=== PATIENT | male | born 1950 ===

== ENCOUNTER 2019-12-17 11:42 | Emergency (ER) | payer OTHER, MEDICARE ==
[2019-12-17] MEDS ORDERED: Sodium Chloride 0.9% 10 ML Syringe FLUSH PRN (11:52)
--- NOTE | 2019-12-17 11:52 | EDM.PDOC ---
ED HPI GENERAL MEDICAL PROBLEM - General Stated Complaint: CANT BREATH, EAT, SLEEP Time Seen by Provider: 12/17/19 11:52 Source of Information: Reports: Patient, RN, RN Notes Reviewed History Limitations: Reports: No Limitations - History of Present Illness INITIAL COMMENTS - FREE TEXT/NARRATIVE: Patient presents to ER with complaint of shortness of breath, feeling of weakness, decreased appetite, and states he has not slept in 4 days. Patient is a , and thought he was coming to the [facility]. Patient states that he has been diagnosed with COPD. States he has oxygen at home that he uses only when needed, which has been much more often lately. Patient denies any fever chills, nausea, vomiting, diarrhea. Patient says he has had increased weakness and has had some falls at home, denies falling hard or hitting his head, states he generally catches himself. Patient states he does not doctor often. Denies taking any medications on a regular basis. Patient denies being diabetic, or having any heart problems. Onset: Gradual Generalized Pain Score (Numeric/FACES): 5 - Related Data Allergies Allergy/AdvReac Type Severity Reaction Status Date / Time Penicillins Allergy Rash Verified 12/17/19 11:59 Home Meds: Home Meds . [No Known Home Meds] 12/17/19 [History] ED ROS GENERAL - Review of Systems Review Of Systems: Comprehensive ROS is negative, except as noted in HPI. ED EXAM, GENERAL - Physical Exam Exam: See Below Exam Limited By: Respiratory Distress General Appearance: Alert, Moderate Distress, Thin, Cachetic Eye Exam: Bilateral Eye: EOMI, Normal Inspection Ears: Normal External Exam, Hearing Loss Nose: Normal Inspection Throat/Mouth: Normal Inspection, Normal Voice, No Airway Compromise Head: Atraumatic, Normocephalic Neck: Normal Inspection, Supple, Non-Tender, Full Range of Motion Respiratory/Chest: Respiratory Distress, Decreased Breath Sounds (very little AE heard), Crackles (throughout), Accessory Muscle Use Cardiovascular: Normal Peripheral Pulses, Regular Rate, Rhythm, No Gallop, No JVD, No Murmur, No Rub, Tachycardia, Other (pedal edema) Peripheral Pulses: 1+: Dorsalis Pedis (L), Dorsalis Pedis (R), 2+: Radial (L), Radial (R) GI/Abdominal: Normal Bowel Sounds, Soft, Non-Tender, No Organomegaly, No Distention, No Abnormal Bruit, No Mass, Pelvis Stable (Male) Exam: Deferred Rectal (Males) Exam: Deferred Back Exam: Decreased Range of Motion Extremities: Normal Range of Motion, Pedal Edema (+2-3 pitting to feet) Neurological: Alert, Oriented, CN II-XII Intact, Normal Cognition Psychiatric: Normal Affect, Normal Mood Skin Exam: Warm, Dry, Intact, Normal Color, No Rash Lymphatic: No Adenopathy Course - Vital Signs Last Recorded V/S: Last Vital Signs Temp 97.7 F 12/17/19 11:55 Pulse 121 H 12/17/19 11:55 Resp 24 H 12/17/19 11:55 BP 185/105 H 12/17/19 11:55 Pulse Ox 75 L 12/17/19 11:55 - Orders/Labs/Meds Orders: Active Orders 24 hr Category Date Time Status EKG Documentation Completion [RC] STAT Care 12/17/19 11:53 Active Peripheral IV Care [RC] . DIRECTED Care 12/17/19 11:53 Active REFLEX LACTIC ACID YES OR NO [CHEM] Routine Lab 12/17/19 12:47 Received UA RFX YAAKOV AND CULT IF INDIC [URIN] Stat Lab 12/17/19 13:31 Ordered Heparin Sodium/0.45% NaCl [Heparin 25,000 Units in 1/2 Med 12/17/19 13:00 Active NS 500 ML] 25,000 units in 500 ml IV TITRATE Sodium Chloride 0.9% [Saline Flush] Med 12/17/19 11:52 Active 10 ml FLUSH ASDIRECTED PRN Peripheral IV Insertion Adult [OM.PC] Stat Oth 12/17/19 11:52 Ordered Medication Orders Heparin Sodium/Sodium Chloride (Heparin 25,000 Units In 1/2 Ns 500 Ml) 25,000 units in 500 mls @ 10.538 mls/hr IV TITRATE LUZMA; Protocol Last Admin: 12/17/19 13:06 Dose: 12 units/kg/hr, 10.538 mls/hr Documented by: KAITLYN Cosigned by: MARCIA Sodium Chloride (Saline Flush) 10 ml FLUSH ASDIRECTED PRN PRN Reason: Keep Vein Open Last Admin: 12/17/19 12:00 Dose: 10 ml Documented by: KAITLYN Labs: Laboratory Tests 12/17/19 12/17/19 12/17/19 Range/Units 11:55 11:55 11:55 WBC 12.4 H (5.0-10.0) 10^3/uL RBC 5.68 (4.6-6.2) 10^6/uL Hgb 17.6 (14.0-18.0) g/dL Hct 51.4 (40.0-54.0) % MCV 90.5 (80-100) fL MCH 31.0 (27.0-34.0) pg MCHC 34.2 (33.0-35.0) g/dL Plt Count 281 (150-450) 10^3/uL Neut % (Auto) 87.9 H (42.2-75.2) % Lymph % (Auto) 6.2 L (20.5-50.1) % Benzie % (Auto) 5.5 (2-8) % Eos % (Auto) 0.1 L (1.0-3.0) % Baso % (Auto) 0.3 (0.0-1.0) % PT 11.0 (9.0-12.0) SEC INR 1.2 (0.9-1.2) D-Dimer, Quantitative 298 (0-400) ng/mL Sodium 136 (136-145) mmol/L Potassium 4.2 (3.5-5.1) mmol/L Chloride 95 L (98-107) mmol/L Carbon Dioxide 30 (21-32) mmol/L Anion Gap 15.2 H (7-13) mEq/L BUN 23 H (7-18) mg/dL Creatinine 1.07 (0.70-1.30) mg/dL Est Cr Clr Drug Dosing TNP Estimated GFR (MDRD) > 60 BUN/Creatinine Ratio 21.5 (No establ ref range) Glucose 120 H (74-99) mg/dL Lactic Acid (0.4-2.0) mmol/L Calcium 9.2 (8.5-10.1) mg/dL Total Bilirubin 0.6 (0.2-1.0) mg/dL AST 26 (15-37) U/L ALT 27 (16-63) U/L Alkaline Phosphatase 91 (46-116) U/L Troponin I 0.224 H* (0.000-0.056) ng/mL B-Natriuretic Peptide 2000 H (0-100) pg/ml Total Protein 8.1 (6.4-8.2) g/dL Albumin 3.8 (3.4-5.0) g/dL Globulin 4.3 Albumin/Globulin Ratio 0.9 COVID-19 (EMMANUEL) (NEGATIVE) 12/17/19 12/17/19 Range/Units 11:55 12:57 WBC (5.0-10.0) 10^3/uL RBC (4.6-6.2) 10^6/uL Hgb (14.0-18.0) g/dL Hct (40.0-54.0) % MCV (80-100) fL MCH (27.0-34.0) pg MCHC (33.0-35.0) g/dL Plt Count (150-450) 10^3/uL Neut % (Auto) (42.2-75.2) % Lymph % (Auto) (20.5-50.1) % Benzie % (Auto) (2-8) % Eos % (Auto) (1.0-3.0) % Baso % (Auto) (0.0-1.0) % PT (9.0-12.0) SEC INR (0.9-1.2) D-Dimer, Quantitative (0-400) ng/mL Sodium (136-145) mmol/L Potassium (3.5-5.1) mmol/L Chloride (98-107) mmol/L Carbon Dioxide (21-32) mmol/L Anion Gap (7-13) mEq/L BUN (7-18) mg/dL Creatinine (0.70-1.30) mg/dL Est Cr Clr Drug Dosing Estimated GFR (MDRD) BUN/Creatinine Ratio (No establ ref range) Glucose (74-99) mg/dL Lactic Acid 3.2 H* (0.4-2.0) mmol/L Calcium (8.5-10.1) mg/dL Total Bilirubin (0.2-1.0) mg/dL AST (15-37) U/L ALT (16-63) U/L Alkaline Phosphatase (46-116) U/L Troponin I (0.000-0.056) ng/mL B-Natriuretic Peptide (0-100) pg/ml Total Protein (6.4-8.2) g/dL Albumin (3.4-5.0) g/dL Globulin Albumin/Globulin Ratio COVID-19 (EMMANUEL) Negative (NEGATIVE) Meds: Medications Generic Name Dose Route Start Last Admin Trade Name Freq PRN Reason Stop Dose Admin Heparin Sodium/Sodium Chloride 25,000 units in 500 mls @ 10.538 mls/hr 12/17/19 13:00 12/17/19 13:06 Heparin 25,000 Units In 1/2 Ns 500 Ml IV 12 units/kg/hr TITRATE LUZMA 10.538 mls/hr Administration Protocol 12 UNITS/KG/HR Sodium Chloride 10 ml 12/17/19 11:52 12/17/19 12:00 Saline Flush FLUSH 10 ml ASDIRECTED PRN Administration Keep Vein Open Discontinued Medications Generic Name Dose Route Start Last Admin Trade Name Freq PRN Reason Stop Dose Admin Aspirin 324 mg 12/17/19 12:52 12/17/19 13:05 Aspirin PO 12/17/19 12:53 324 mg ONETIME ONE Administration Furosemide 80 mg 12/17/19 12:47 12/17/19 12:52 Lasix IVPUSH 12/17/19 12:48 80 mg NOW ONE Administration Heparin Sodium (Porcine) 4,000 units 12/17/19 12:53 12/17/19 13:06 Heparin Sodium IVPUSH 12/17/19 12:54 4,000 units .BOLUS ONE Administration - Radiology Interpretation Free Text/Narrative:: Chest xray: PROCEDURE INFORMATION: Exam: XR Chest, 1 View Exam date and time: 12/17/2019 12:35 PM Age: 69 years old Clinical indication: Other: SOB, sats 75% ra; Additional info: SOB, sats 75% ra TECHNIQUE: Imaging protocol: XR of the chest Views: 1 view. COMPARISON: No relevant prior studies available. FINDINGS: Lungs: There is mild vascular congestion. There are hazy multifocal right perihilar mid and lower lung opacities which should be correlated for pneumonitis. The left lung is grossly clear. There is bilateral apical pulmonary scarring. Pleural space: There is a trace right pleural effusion. Heart/Mediastinum: There is moderate cardiac enlargement. The pulmonary artery caliber is prominent. Bones/joints: There is no acute osseous abnormality. IMPRESSION: Although there is moderate cardiac enlargement and mild vascular congestion as well as mild pulmonary artery enlargement, there are more localizing asymmetric multifocal right perihilar mid to lower lung zone opacities concerning for pneumonitis. Thank you for allowing us to participate in the care of your patient. Dictated and Authenticated by: Roge Williamson MD 12/17/2019 1:04 PM Central Time ([place] & [place]) See rad report - Re-Assessments/Exams Free Text/Narrative Re-Assessment/Exam: 12/17/19 12:55 Discussed patient case with Dr. Davison at the [facility]. She states the patient should be transferred to , as they do not have a cytology laboratory manager. Patient case discussed with Dr. Baird who agreed to accept the patient for t ransfer to . Departure - Departure Time of Disposition: 13:59 Disposition: DC/Tfer to [facility] 02 Condition: Poor, Serious Clinical Impression: NSTEMI (non-ST elevated myocardial infarction) COPD (chronic obstructive pulmonary disease) Qualifiers: COPD type: COPD with acute exacerbation Qualified Code(s): J44.1 - Chronic obstructive pulmonary disease with (acute) exacerbation CHF (congestive heart failure) Qualifiers: Heart failure type: systolic Heart failure chronicity: acute Qualified Code(s): I50.21 - Acute systolic (congestive) heart failure - Discharge Information *PRESCRIPTION DRUG MONITORING PROGRAM REVIEWED*: No *COPY OF PRESCRIPTION DRUG MONITORING REPORT IN PATIENT LEI: No Forms: Interfacility Transfer EMTALA, ED Department Discharge Sepsis Event Note (ED) - Focused Exam Vital Signs: Vital Signs Temp Pulse Resp BP Pulse Ox 12/17/19 11:55 97.7 F 121 H 24 H 185/105 H 75 L - My Orders Last 24 Hours: My Active Orders 12/17/19 11:52 Sodium Chloride 0.9% [Saline Flush] 10 ml FLUSH ASDIRECTED PRN Peripheral IV Insertion Adult [OM.PC] Stat 12/17/19 11:53 EKG Documentation Completion [RC] STAT Peripheral IV Care [RC] . DIRECTED 12/17/19 12:47 REFLEX LACTIC ACID YES OR NO [CHEM] Routine 12/17/19 13:00 Heparin Sodium/0.45% NaCl [Heparin 25,000 Units in 1/2 NS 500 ML] 25,000 units in 500 ml IV TITRATE 12/17/19 13:31 UA RFX YAAKOV AND CULT IF INDIC [URIN] Stat - Assessment/Plan Last 24 Hours: My Active Orders 12/17/19 11:52 Sodium Chloride 0.9% [Saline Flush] 10 ml FLUSH ASDIRECTED PRN Peripheral IV Insertion Adult [OM.PC] Stat 12/17/19 11:53 EKG Documentation Completion [RC] STAT Peripheral IV Care [RC] . DIRECTED 12/17/19 12:47 REFLEX LACTIC ACID YES OR NO [CHEM] Routine 12/17/19 13:00 Heparin Sodium/0.45% NaCl [Heparin 25,000 Units in 1/2 NS 500 ML] 25,000 units in 500 ml IV TITRATE 12/17/19 13:31 UA RFX YAAKOV AND CULT IF INDIC [URIN] Stat
[2019-12-17 12:25] LABS: ANION GAP 15.2 mEq/L (7-13); CHLORIDE,CL 95 mmol/L (98-107); SODIUM,NA 136 mmol/L (136-145)
[2019-12-17] MEDS ORDERED: Furosemide 40 MG/4 ML VIAL IVPUSH ONE (12:47)
[2019-12-17] MEDS ORDERED: Aspirin 81 MG Tab.Chew PO ONE (12:52)
[2019-12-17] MEDS ORDERED: Heparin Sodium 5,000 Units/ML Vial IVPUSH ONE (12:53)
[2019-12-17] MEDS ORDERED: Heparin Sodium/0.45% NaCl 25,000 UNITS/500 ML BAG IV SCH (13:00)
--- NOTE | 2019-12-17 13:04 | CR ---
PROCEDURE INFORMATION: Exam: XR Chest, 1 View Exam date and time: 12/17/2019 12:35 PM Age: 69 years old Clinical indication: Other: SOB, sats 75% ra; Additional info: SOB, sats 75% ra TECHNIQUE: Imaging protocol: XR of the chest Views: 1 view. COMPARISON: No relevant prior studies available. FINDINGS: Lungs: There is mild vascular congestion. There are hazy multifocal right perihilar mid and lower lung opacities which should be correlated for pneumonitis. The left lung is grossly clear. There is bilateral apical pulmonary scarring. Pleural space: There is a trace right pleural effusion. Heart/Mediastinum: There is moderate cardiac enlargement. The pulmonary artery caliber is prominent. Bones/joints: There is no acute osseous abnormality. IMPRESSION: Although there is moderate cardiac enlargement and mild vascular congestion as well as mild pulmonary artery enlargement, there are more localizing asymmetric multifocal right perihilar mid to lower lung zone opacities concerning for pneumonitis.
== END 2019-12-17 14:07 ==
LOC: DL.ED 11:42
DX: I21.4 Non-ST elevation (NSTEMI) myocardial infarction (principal); J44.1 Chronic obstructive pulmonary disease with (acute) exacerbation; I50.21 Acute systolic (congestive) heart failure; Z88.0 Allergy status to penicillin; Z20.828 Contact with and (suspected) exposure to other viral communicable diseases
CPT/HCPCS: 36415; 71045; 80053; 81001; 83605; 83880; 84484; 85025; 85379; 85610; 93005; 96365; 96375; 99284; 99285-25; A9270-GY; J1644; J1940; U0002

== ENCOUNTER 2020-03-14 12:00 | Emergency (ER) | payer OTHER, MEDICARE ==
--- NOTE | 2020-03-14 13:36 | EDM.PDOC ---
ED HPI GENERAL MEDICAL PROBLEM - General Chief Complaint: Lower Extremity Injury/Pain Stated Complaint: LEFT FOOT INFECTION/[facility] Time Seen by Provider: 03/14/20 12:30 Source of Information: Reports: Patient, Provider History Limitations: Reports: No Limitations - History of Present Illness INITIAL COMMENTS - FREE TEXT/NARRATIVE: 69 year old male with a PMH of CHF and COPD who present to the ER from the [facility] for complaints of left foot pain. He states pain began two months ago and has gradually been worst. Rates his pain as 9/10 and he reports coldness to his left lower extremity.he also reports blisters of the first 3 toes of his foot. States that the left foot "" at times. Denies any recent injury, trauma or fall. Left Feet Pain Score (Numeric/FACES): 9 - Related Data Allergies Allergy/AdvReac Type Severity Reaction Status Date / Time Penicillins Allergy Rash Verified 03/14/20 12:16 Home Meds: Home Meds . [No Known Home Meds] 12/17/19 [History] Past Medical History HEENT History: Reports: Impaired Vision Other HEENT History: wears glasses Cardiovascular History: Reports: GA Other Cardiovascular History: 3 months ago Respiratory History: Reports: COPD Gastrointestinal History: Reports: None Genitourinary History: Reports: None Musculoskeletal History: Reports: None Neurological History: Reports: None Psychiatric History: Reports: None Endocrine/Metabolic History: Reports: None Hematologic History: Reports: None Immunologic History: Reports: None Oncologic (Cancer) History: Reports: None Dermatologic History: Reports: None - Infectious Disease History Infectious Disease History: Reports: Chicken Pox, Measles, Mumps - Past Surgical History Head Surgeries/Procedures: Reports: None Social & Family History - Tobacco Use Tobacco Use Status *Q: Current Every Day Tobacco User Years of Tobacco use: 50 Packs/Tins Daily: 0.5 Second Hand Smoke Exposure: No - Caffeine Use Caffeine Use: Reports: Coffee - Recreational Drug Use Recreational Drug Use: No Review of Systems - Review of Systems Review Of Systems: See Below Constitutional: Reports: No Symptoms Eyes: Reports: No Symptoms Ears: Reports: No Symptoms Nose: Reports: No Symptoms Mouth/Throat: Reports: No Symptoms Respiratory: Reports: No Symptoms Cardiovascular: Denies: Chest Pain, Edema Skin: Reports: Change in Color (left toes), Change in Hair/Nails (left toes) Neurological: Reports: Numbness (in the left toes), Tingling (left toes ). Denies: Gait Disturbance ED EXAM, GENERAL - Physical Exam Exam: See Below Exam Limited By: No Limitations General Appearance: Alert, Moderate Distress Nose: Normal Inspection, Normal Mucosa, No Blood Throat/Mouth: Normal Inspection, Normal Lips, Normal Oropharynx Neck: Normal Inspection, Supple, Non-Tender, Full Range of Motion Respiratory/Chest: No Respiratory Distress, Lungs Clear, Normal Breath Sounds, No Accessory Muscle Use, Chest Non-Tender Cardiovascular: No Edema GI/Abdominal: Normal Bowel Sounds Extremities: Leg Pain, Other (left three toes purple/red cool to touch with dopplered pulses.) Neurological: Alert, Oriented Psychiatric: Normal Affect Lymphatic: No Adenopathy () Course - Vital Signs Last Recorded V/S: Last Vital Signs Temp 98.3 F 03/14/20 12:06 Pulse 87 03/14/20 12:06 Resp 16 03/14/20 12:06 BP 95/62 03/14/20 12:06 Pulse Ox 100 03/14/20 12:06 - Re-Assessments/Exams Free Text/Narrative Re-Assessment/Exam: Reviewed exam findings with patient. Discussed case with Mihaela larsen and Dr. Hubbard accepted patient for transfer. Patient declined transferred and walk out AMA. Departure - Departure Time of Disposition: 15:30 Disposition: Against Medical Advice 07 Condition: Poor Clinical Impression: Arterial insufficiency of lower extremity - Discharge Information Sepsis Event Note (ED) - Evaluation Sepsis Screening Result: No Definite Risk - Focused Exam Vital Signs: Vital Signs Temp Pulse Resp BP Pulse Ox 03/14/20 12:06 98.3 F 87 16 95/62 100
== END 2020-03-14 13:59 | disposition left against medical advice (07) ==
LOC: DL.ED 12:00
DX: I73.9 Peripheral vascular disease, unspecified (principal); I50.9 Heart failure, unspecified; J44.9 Chronic obstructive pulmonary disease, unspecified; I25.2 Old myocardial infarction; F17.210 Nicotine dependence, cigarettes, uncomplicated; Z88.0 Allergy status to penicillin; Z20.828 Contact with and (suspected) exposure to other viral communicable diseases
CPT/HCPCS: 99283; 99284; U0002

== ENCOUNTER 2021-11-27 14:06 | Emergency (ER) | payer OTHER ==
[2021-11-27] MEDS ORDERED: Sodium Chloride 0.9% 10 ML Syringe FLUSH PRN (14:11)
[2021-11-27 14:56] LABS: CHLORIDE,CL 94 mmol/L (98-107)
[2021-11-27 15:08] LABS: ANION GAP 12.7 mEq/L (7-13); SODIUM,NA 127 mmol/L (136-145)
[2021-11-27 15:10] LABS: ESTIMATED GFR 68 mL/min (>=60)
[2021-11-27] MEDS ORDERED: Iopamidol 755 Mg/ML 100 ML Bottle IVPUSH ONE (15:21)
[2021-11-27] MEDS ORDERED: Sodium Chloride 0.9% 1,000 ML IV ONE (15:51)
== END 2021-11-27 18:20 | disposition home or self-care (01) ==
LOC: DL.ED 14:06
DX: R07.9 Chest pain, unspecified (principal); E87.1 Hypo-osmolality and hyponatremia; I25.2 Old myocardial infarction; J44.9 Chronic obstructive pulmonary disease, unspecified; I10 Essential (primary) hypertension; F17.210 Nicotine dependence, cigarettes, uncomplicated; Z88.0 Allergy status to penicillin; Z20.822 Contact with and (suspected) exposure to COVID-19
CPT/HCPCS: 36415; 71045; 71260; 80053; 80307; 83605; 83880; 84443; 84484; 85025; 85379; 85610; 86140; 87635; 93005; 96360; 99285; J3490; J7030; Q9967; U0002